=== PATIENT | female | born 1950 | race Caucasian/White ===

== ENCOUNTER 2017-02-21 21:26 | Emergency (ER) | payer OTHER, MEDICARE ==
[~2017-02-21] VITALS: Ht 185.4 cm; Wt 118.2 kg
[~2017-02-21 21:26] MED LIST: ALBU8.5H2 INHALATION; AZEL137S11 NS; CALC-78 PO; CETI10CA PO; CHLO50TA PO; CYAN1TAB42 PO; ESCI5TAB10 PO; ESTR0.5T; FOLI0.8T PO; GUAI100G2 PO; IMI25 PO; MAGN400T39 PO; OMEG1CAP56 PO; POTA99TA21 PO; RES15 PO; VERA120T84 PO
[2017-02-21 21:36] VITALS: BP 174/84; PULSE 64; RESP 16; O2SAT 99
--- NOTE | 2017-02-21 23:30 | ED.REPORT ---
HPI-Trauma Minor / Fall Date of Service Feb 21, 2017 ED Provider: Zach Nguyen MD 67 year old female with a history of osteoarthritis, fibromyalgia, left wrist surgery, and bilateral knee replacements presents to the ER complaining of left wrist pain status post mechanical ground level fall while at work earlier today. She states that she tripped on her left foot and fell forward onto her stomach and outstretched left wrist. Associated symptoms include abdominal vs thoracic pain, and mild neck pain. Nursing Notes Stated Complaint: FALL/LEFT STOMACH INJURY/L AND I Chief Complaint: Multiple Trauma/Fall Nursing Notes Reviewed: Yes Allergies: Coded Allergies: Penicillins (Verified Allergy, Severe, RASH, 02/21/17) lisinopril (Verified Allergy, Severe, diarrhea,cough,YIN,diff. swallowing, 02/21/17) losartan potassium (Verified Allergy, Severe, Diarrhea,dizziness,fatigue, diff. swallowing,muscle cramping,, 02/21/17) lovastatin (Verified Allergy, Severe, bruising,fatigue,myalgia, 02/21/17) nebivolol HCl (Verified Allergy, Severe, Dizziness, GI Upset, Swelling, insomnia, 02/21/17) Sulfa (Sulfonamide Antibiotics) (Verified Allergy, Unknown, 02/21/17) amoxicillin (Verified Allergy, Unknown, 02/21/17) atenolol (Verified Allergy, Unknown, UNKNOWN, 02/21/17) cephalexin (Verified Allergy, Unknown, N/V, 02/21/17) ciprofloxacin (Verified Allergy, Unknown, Dizziness, 02/21/17) clavulanic acid (Verified Allergy, Unknown, 02/21/17) erythromycin base (Verified Allergy, Unknown, 02/21/17) hydrocortisone acetate (Verified Allergy, Unknown, STOMACH CRAMPS, 02/21/17 ) Carvedilol Phosphate (Verified Adverse Reaction, Severe, dizziness,fatigue ,YIN,wt. gain,swelling of ankles, 02/21/17) fluoxetine HCl (Verified Adverse Reaction, Severe, YIN,fatigue,dry mouth, changes in sexual function, 02/21/17) gabapentin (Verified Adverse Reaction, Severe, fatigue,dizziness dry mouth ,Ankle swelling,GI Upset, 02/21/17) hydrocodone bitartrate (Verified Adverse Reaction, Severe, N&V, 02/21/17) oxycodone (Verified Adverse Reaction, Severe, SEVERE NAUSEA AND VOMITTING , 02/21/17) spironolactone (Verified Adverse Reaction, Severe, diarrhea,GI Upset & Pain,thirst,muscle wkness, 02/21/17) topiramate (Verified Adverse Reaction, Severe, drowsiness,numbness, abd.pain,depression,memory loss,, 02/21/17) codeine (Verified Adverse Reaction, Mild, NO PAIN RELIEF, 02/21/17) Scheduled Azelastine HCl (Azelastine HCl) 137 Mcg/0.137 Ml [place].pump 137 MCG NS BID Calcium Carbonate/Vitamin D3 (Calcium 500 + Vit D [place]) 1 Each Tablet 1 EACH PO DAILY Cetirizine HCl (Zyrtec) 10 Mg Capsule 10 MG PO HS Chlorthalidone (Chlorthalidone) 50 Mg Tablet 50 MG PO DAILY Cyanocobalamin/Folic Acid (Vitamin I22-Jovgb Acid Tablet) 1 Each Tablet 1 EACH PO DAILY Escitalopram Oxalate (Escitalopram Oxalate) 5 Mg Tablet 5 MG PO DAILY Estradiol (Estradiol) 0.5 Mg Tablet DAILY Folic Acid (Folic Acid) 0.8 Mg Tablet 0.8 MG PO DAILY Magnesium Oxide (Magnesium) 400 Mg Tablet 400 MG PO DAILY [place]-3 Fatty Acids/Fish Oil ([place] 3 1,000 mg Softgel) 1 Each Capsule 1 EACH PO DAILY Potassium Gluconate (Potassium) 99 Mg Tablet 99 MG PO BID Verapamil ER (Verapamil ER) 120 Mg Tablet.er 120 MG PO DAILY Scheduled PRN Albuterol HFA (Proair HFA) 8.5 Gm Hfa.aer.ad 2 PUFFS INHALATION Q4H PRN PRN For Shortness of Breath Sumatriptan (Imitrex) 25 Mg Tablet 50 MG PO PRN migraines MR q2hrs/ NTE 200mg/24hrs Temazepam (Temazepam) 15 Mg Capsule 15 MG PO HS PRN PRN For Insomnia Miscellaneous Medications Guaifenesin (Mucinex) 100 Mg Gran.pack 100 MG PO General Time Seen by MD: 23:30 Chief Complaint Fall on outstretched hand, Extremity pain (Left Wrist) Hx Obtained From: Patient Arrived By: Walk-in Onset Occurred: 1 - 4 hours ago Symptom Duration: Since onset Caused by: Accidental, Fall on ground Context: Occurred at: Workplace Location: Wrist left Quality: Painful Severity: Current: Moderate Severity: Maximum: Moderate Associated with: Reports: Abdominal pain, Neck pain, Denies: Headache, Loss of consciousness Past Medical History Past Medical History fibromyalgia osteoarthritis Barretts syndrome kidney stones Reports: Diabetes mellitus, GERD, Hyperlipidemia, Hypertension Reports: Depression, Diverticulitis Past Surgical History hernia repair bladder sling bilat knee repl abdominoplasty micaela fundiplication Reports: Hysterectomy, Tonsillectomy Smoking History Never Smoker Social History Alcohol Use: "Social" Other Social History: Local resident Ambulatory Status Independent Review of Systems Musculoskeletal: Reports: Extremity pain (Left Wrist), Neck pain, Thoracic pain , Denies: Back pain, Joint pain, Lumbar pain Neurologic: Denies: Syncope Complete sys rev & neg: except as marked. Physical Exam Initial Vital Signs Vital Signs (First) Date Time Temp Pulse Resp B/P Pulse Ox O2 Delivery O2 Flow Rate FiO2 02/21/17 21:36 36.3 64 16 174/84 99 Room Air Initial VS: Reviewed Head / Eyes: Atraumatic, Normocephalic, PERRL Respiratory: Breath sounds normal, Clear to auscultation, No respiratory distress Cardiovascular: Regular rate & rhythm, Heart sounds normal, Intact distal pulses Skin: Warm, Dry, No cyanosis Neurologic: Alert, Oriented, Nonfocal General/Constitutional: Awake, Alert, Well developed Neck: Supple, Full range of motion, No midline vertebral tend, No tracheal deviation Abdomen: Soft, No guarding, No rebound, No distention Tenderness/Guarding/Rebound: Positive: Tender RUQ... (Mild) Wrist / Hand: Full range of motion, Neurologic intact, Vascular intact Left Wrist: Positive: Tenderness present... (Mild) Right Hand: Positive: Tenderness present... (Mild) Lower Extremity / Pelvis / MS: Inspection NL, No swelling, Non-tender, No erythema, No deformity, Neurologic intact, Vascular intact, No edema Interpretation & Diagnostics X-Ray Interpretation Xray Interpretation: No fracture. X-Ray Ordered: Wrist left Interpretation / Wet Read by: Wet read ED physician Re-Eval/Medical Decision Med Decision/Clinical Course 67-year-old with fibromyalgia presents after a fall while at work. She has a negative x-ray sprained wrist on the left. Belly is benign to evaluation and no indication for imaging. Ribs are nontender and no indication for imaging. Discharged with a spica splint, extremity strength Tylenol to augment her nabumetone. Discharged in stable condition. Re-Evaluation/Progress : Time of Eval: 23:43 Re-Evaluation/Progress Note: Discussed radiology results and plan to discharge. Patient is amenable to the plan. Return precautions given. All other questions addressed. 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 Extra strength Tylenol as needed for pain Follow up with your doctor in the office Return if any immediate issues, such as vomiting or other unexpected new symptoms You can expect symptoms to stiffness and numbness. Referrals: Ashley Presley (PCP) Scribe Attestation Portions of this note were transcribed by Sergey Goode. I, Dr. Nguyen, personally performed the history, physical exam and medical decision-making; I reviewed and confirmed the accuracy of the information in the transcribed note. Signed by: Gilberto Nguyễn. 02/22/2017 - 00:16 copies to: Ashley Presley Christopher W MD Feb 21, 2017 23:30 SERGEY GOODE Feb 21, 2017 23:36 Ashley Presley (PCP) Scribe Attestation Portions of this note were transcribed by Sergey Goode. Dr. Patrick Blanchard, personally performed the history, physical exam and medical decision-making; I reviewed and confirmed the accuracy of the information in the transcribed note. Signed by: Gilberto Nguyễn. 02/21/2017 - 23:47 copies to: Ashley Presley Christopher W MD Feb 21, 2017 23:30 SERGEY GOODE Feb 21, 2017 23:36
[2017-02-21 23:47] VITALS: BP 146/64; PULSE 58; O2SAT 94
[2017-02-22 00:01] VITALS: BP 146/64; PULSE 58; RESP 16; O2SAT 94
--- NOTE | 2017-02-22 08:58 | DRSVH ---
PROCEDURE: X-RAY LEFT WRIST COMPLETE, MINIMUM THREE VIEWS ([id number]) INDICATIONS: 67 year-old with left wrist pain. Patient fell at work. TECHNIQUE: 4 views of the wrist were acquired. COMPARISON: [facility], CR, XR WRIST 3VW LT, 12/19/2015, 16:08. FINDINGS: Bones: No fractures or dislocations. No suspicious bony lesions. Mild negative ulnar variance. Mo derate first CMC joint narrowing with periarticular osteophyte formation. Scaphoid view: Intact scaphoid. Soft tissues: No suspicious soft tissue calcifications. IMPRESSION: 1. No displaced fracture seen. If there is continued pain, followup exam or additional imaging such as MRI or CT could be performed for further assessment. 2. Mild negative ulnar variance. 3. Mild osteoarthritis. Dictated by: Ck Tobar [facility] Interpreted: Vijay Harry MD on 02/22/2017 at 8:56 Transcribed by: FRANKIE on 02/22/2017 at 8:57 Approved by: Vijay Harry M.D. on 02/22/2017 at 10:53
== END 2017-02-22 00:28 | disposition home or self-care (01) ==
LOC: SED 21:26
DX: S63.502A Unspecified sprain of left wrist, initial encounter (principal); W01.0XXA Fall on same level from slipping, tripping and stumbling without subsequent striking against object, initial encounter; Y93.89 Activity, other specified; Y92.69 Other specified industrial and construction area as the place of occurrence of the external cause; Y99.0 Civilian activity done for income or pay; M54.6 Pain in thoracic spine; R10.11 Right upper quadrant pain; M54.2 Cervicalgia; I10 Essential (primary) hypertension; K21.9 Gastro-esophageal reflux disease without esophagitis; E11.9 Type 2 diabetes mellitus without complications; E78.5 Hyperlipidemia, unspecified; M79.7 Fibromyalgia; Z98.890 Other specified postprocedural states; Z88.0 Allergy status to penicillin; Z88.1 Allergy status to other antibiotic agents; Z88.2 Allergy status to sulfonamides; Z88.5 Allergy status to narcotic agent; Z88.8 Allergy status to other drugs, medicaments and biological substances